=== PATIENT | male | born 1960 | race Caucasian/White ===

== ENCOUNTER → 2018-02-26 | Outpatient (CLI) | payer OTHER ==
--- NOTE | 2018-02-26 12:15 | KCIC ---
Left wrist, 3 views, 02/26/2018: HISTORY: Wrist pain No fracture or dislocation is identified. There is mild degenerative change at the first CMC joint. There is mild spurring along the dorsal aspect of the carpal bones. There is slight widening of the scapholunate junction. A tiny well-defined calcifications along the radial aspect of the radiocarpal articulations compatible with old trauma. IMPRESSION: 1. Slight widening of the scapholunate junction raising the possibility of ligamentous injury. 2. Mild degenerative change. 3. No acute bony abnormality is detected. Electronically signed by: Goyo Lloyd MD (02/26/2018 12:10 PM) [facility]
== END | disposition home or self-care (01) ==
LOC: KCIC 09:51
PROVIDERS: ATTEND Nurse Practitioner Family
DX: M19.032 Primary osteoarthritis, left wrist (principal)
CPT/HCPCS: 73110

== ENCOUNTER → 2018-03-17 | Outpatient (CLI) | payer OTHER ==
--- NOTE | 2018-03-17 11:56 | KCIC ---
MR of the left wrist Indication: Left wrist pain since last summer. Widened scapholunate distance on x-ray. Comparison: None are available Technique: Standard multiplanar sequences are obtained. FINDINGS: Artifact: Motion degradation due to pain, but there is still diagnostic information Triangular fibrocartilage: Appears intact. Distal radioulnar alignment: Intact Extensor carpi ulnaris tendon: Intact, no significant dislocation. Other extensor compartments: Intact Flexor tendons: Intact Median nerve: Unremarkable Scapholunate ligament: Thick and irregular, with heterogeneous signal. There is some linear fluid signal traversing ligament at the scaphoid attachment. Findings compatible with at least a partial tear. Lunotriquetral ligament: No evidence of a tear. Carpal bone alignment: Dorsal tilt of the lunate with increased scapholunate angle and lunocapitate axis. Fluid: No significant effusion. Joints: Mild degenerative changes. Bones: No lesion or acute fracture Soft tissues: Unremarkable IMPRESSION: 1. The scapholunate ligament demonstrates a heterogeneous appearance, with probable tearing along its scaphoid attachment. In addition, there is dorsal tilt of the lunate with evidence of DISI. 2. No other definite internal derangement. Electronically signed by: Tristan Moreno MD (03/17/2018 11:52 AM) [facility]
== END | disposition home or self-care (01) ==
LOC: KCIC MRI 08:31
PROVIDERS: ATTEND Nurse Practitioner Family
DX: M19.032 Primary osteoarthritis, left wrist (principal)
CPT/HCPCS: 73221